=== PATIENT | male | born 1970 | race Caucasian/White ===

== ENCOUNTER 2017-04-15 20:47 | Emergency (ER) | payer BC, OTHER ==
[~2017-04-15] VITALS: Ht 180.3 cm; Wt 68.6 kg
[2017-04-15 20:51] VITALS: TEMP 36.5; Ht 180.3 cm; Wt 68.6 kg
--- NOTE | 2017-04-15 21:06 | EMERGENCY ROOM VISIT NOTE ---
ED Visit Note First contact with patient: 20:55 CHIEF COMPLAINT: Scalp laceration HISTORY OF PRESENT ILLNESS: This 46-year-old male patient presents emergency department, ambulatory, POV, after striking the head against a consumer studies professor door. The patient states he was closing a double consumer studies professor door, when the door dropped and fell on the top of his head. The patient states the incident occurred approximately 20 minutes ago. He reports some significant bleeding, but states it was easily controlled. The patient did not want to come to the emergency Department, however was told that he should. There was no loss of consciousness, blurry vision, nausea, vomiting, or unusual behavior afterwards. The patient rates the pain as minimal and 2/10. The patient denies neck pain. The bleeding has stopped. The patient's tetanus shot is not up to date. REVIEW OF SYSTEMS: A 6 system review of systems was completed with positives and pertinent negatives listed in the HPI. ALLERGIES: None MEDICATIONS: None PMH: None SOCIAL HISTORY: Age lives locally with family. He denies drug use. The patient admits to occasional alcohol use, and states he does smoke one pack of cigarettes per day. PHYSICAL EXAM: Vital Signs: Reviewed Nurse's notes, vital signs stable. GENERAL : This is a 46-year-old white male, in no acute distress, well-developed, well- nourished. NEURO: Patient was alert and oriented to person place and time. Sensory and motor functions grossly intact. No focal neurologic deficits. Normal sensation to light and sharp touch. EYES: PERRLA. EOMI. Fundoscopic exam without hemorrhages or papilledema. EARS: No hemotympanum. No alcala sign or mastoid tenderness. SKIN: There is a 2 cm laceration on the dorsal aspect of the scalp whose edges are gaping apart. There is no active bleeding. The wound is clean and there are no deep structures present. NECK: Supple, cervical spine nontender to palpation. EMERGENCY DEPARTMENT COURSE: I examined the patient. Verbal consent was obtained to perform the procedure. Using sterile technique the wound was cleaned with Betadine. The area was sterilely draped. 4 ml of 1% buffered lidocaine with epinephrine was used to anesthetize the patient's scalp. Once the patient was numb, the wound was copiously irrigated under pressure with sterile saline. The wound was explored and there were no deep structures present. The laceration was repaired using 5 eduar with the wound edges being well approximated. The patient tolerated the procedure well. The bleeding stopped. The area was cleaned with sterile saline and dressed with bacitracin ointment. The patient was given a tetanus booster. The patient was discharged home in good condition. DIFFERENTIAL DIAGNOSIS: Laceration, contusion, closed head injury or concussion , intracranial hemorrhage, and others DIAGNOSIS: Scalp laceration DISCHARGE INSTRUCTIONS: You have received 5 eduar on your scalp. These eduar are NOT dissolvable and WILL need to be removed by a health care provider in 10 days. You can return to the Emergency Department or contact your Primary Care Provider to have these eduar removed. Proper wound care is essential for adequate wound healing and infection prevention. You can shower and clean the wound with soap and water. Do scour over the wound, pat dry with a towel. Do not submerse the wound until the eduar have been removed. You can use an antibiotic ointment with a dressing over the wound for the next 3-4 days. After this time you may leave the wound dry and open to the air. If crust develops over the wound you can use a Q-tip to apply a 1:1 peroxide:water solution to clean the wound. Look for signs of infection of the wound including: increased pain, swelling, foul discharge, streaking, or increased temperature. If any of these are noticed you should return to the Emergency Department for further assessment and treatment. As with any laceration you may have received nerve damage to the surrounding tissues. This damage may or may not be permanent. For pain control, you can use the following [id number]-klg-[id number] medicines (if >12 yo): - Regular strength (325mg/tab) Tylenol (acetaminophen) 2 tabs every 4-6 hours as needed. Do not exceed 9 tablets in a 24 hour period. Avoid taking more than 3 grams (3000 mg) of Tylenol per day. This includes any other sources of acetaminophen you may take on a regular basis. - Regular strength (200 mg/tab) Advil (ibuprofen) 1-2 tabs every 4-6 hours as needed. Do not exceed a dose of 2400 mg per day. He did receive a tetanus vaccination in the emergency department. This was a Tdap vaccine. He may experience some local pain or discomfort in the arm for the next few days. Patient to move the arm around, as this may help with her discomfort. You may put ice on the arm as well. Return to the emergency department if your symptoms worsen despite treatment course outlined above. Current/Historical Medications No Active Prescriptions or Reported Meds Allergies Coded Allergies: No Known Allergies (Unverified Adverse Reaction, Unknown, 07/26/04) Vital Signs Date Time Temp Pulse Resp B/P (MAP) Pulse Ox O2 Delivery O2 Flow Rate FiO2 04/15/17 20:51 36.5 103 20 136/86 96 Room Air Departure Information Impression Primary Impression: Laceration of scalp Dispostion Home / Self-Care Condition GOOD Prescriptions No Active Prescriptions or Reported Meds Referrals No Doctor, Assigned (PCP) Patient Instructions ED Immunization Tetanus and FU, ED Laceration Scalp Stitch Or Stap, [employer] Additional Instructions You have received 5 eduar on your scalp. These eduar are NOT dissolvable and WILL need to be removed by a health care provider in 10 days. You can return to the Emergency Department or contact your Primary Care Provider to have these eduar removed. Proper wound care is essential for adequate wound healing and infection prevention. You can shower and clean the wound with soap and water. Do scour over the wound, pat dry with a towel. Do not submerse the wound until the eduar have been removed. You can use an antibiotic ointment with a dressing over the wound for the next 3-4 days. After this time you may leave the wound dry and open to the air. If crust develops over the wound you can use a Q-tip to apply a 1:1 peroxide:water solution to clean the wound. Look for signs of infection of the wound including: increased pain, swelling, foul discharge, streaking, or increased temperature. If any of these are noticed you should return to the Emergency Department for further assessment and treatment. As with any laceration you may have received nerve damage to the surrounding tissues. This damage may or may not be permanent. For pain control, you can use the following hutn-zml-nsqhmae medicines (if >12 yo): - Regular strength (325mg/tab) Tylenol (acetaminophen) 2 tabs every 4-6 hours as needed. Do not exceed 9 tablets in a 24 hour period. Avoid taking more than 3 grams (3000 mg) of Tylenol per day. This includes any other sources of acetaminophen you may take on a regular basis. - Regular strength (200 mg/tab) Advil (ibuprofen) 1-2 tabs every 4-6 hours as needed. Do not exceed a dose of 2400 mg per day. He did receive a tetanus vaccination in the emergency department. This was a Tdap vaccine. He may experience some local pain or discomfort in the arm for the next few days. Patient to move the arm around, as this may help with her discomfort. You may put ice on the arm as well. Return to the emergency department if your symptoms worsen despite treatment course outlined above. Problem Qualifiers Primary Impression: Laceration of scalp Encounter type: initial encounter Qualified Codes: S01.01XA - Laceration without foreign body of scalp, initial encounter
[2017-04-15] MEDS ORDERED: LIDOCAINE/EPINEPHRINE 1% 20 ML VIAL INFIL ONE (21:15)
[2017-04-15] MEDS ORDERED: DIPHTHERIA/TETANUS/PERTUSSIS 0.5 ML SYR/VIAL IM. ONE (21:30)
[2017-04-15 21:46] VITALS: BP 135/86; PULSE 72; O2SAT 99
== END 2017-04-15 21:48 | disposition home or self-care (01) ==
LOC: C.EDB 20:48 → C.EDD 21:48
DX: S01.01XA Laceration without foreign body of scalp, initial encounter (principal); W22.8XXA Striking against or struck by other objects, initial encounter; Y92.9 Unspecified place or not applicable; F17.210 Nicotine dependence, cigarettes, uncomplicated